=== PATIENT | male | born 1975 | race Caucasian/White ===

== ENCOUNTER → 2018-07-22 | Outpatient (CLI) | payer OTHER ==
--- NOTE | 2018-07-29 16:22 | PF ---
[address] [address] PULMONARY FUNCTION REPORT Name: JILLCHARLESAZALIA Room: [facility] [place]#: [id number] Admission: 07/22/18 Attend Phys: Scott Phillips Discharge: Date of : 71 Report #: [id number] THIS REPORT FOR: //name// CC: Charles Leung DATE OF SERVICE: 07/22/2018 PULMONARY FUNCTION TEST FINDINGS: Full PFTs were done. The patient had difficulty performing some of the maneuvers due to a cough with exhalation. At best, post-bronchodilator, his FEV1 was 3.28, FVC of 5.98 with a ratio of 55%. Mid flows were decreased. Lung volumes by plethysmography were normal. Diffusion capacity was moderately decreased. IMPRESSION: Suboptimal PFTs as he was not able to consistently reproduce results. However, it does appear that he has at least a mild obstructive process. No evidence of a significant restrictive process. He does appear to have a moderate decrease in diffusion capacity. <ELECTRONICALLY SIGNED> By: Orly Ureña MD 07/29/18 1622 [id number] Ureña MD /nt
== END ==
LOC: M.PUL 09:30
DX: R05 Cough (principal); R06.02 Shortness of breath; R55 Syncope and collapse; Z87.891 Personal history of nicotine dependence